=== PATIENT | female | born 1975 | race Caucasian/White ===

== ENCOUNTER 2016-09-01 07:04 | Emergency (ER) | payer BC ==
[~2016-09-01] VITALS: Ht 167.6 cm; Wt 70.3 kg
[2016-09-01 07:15] VITALS: BP 123/79
--- NOTE | 2016-09-01 15:54 | ED.ADGEN ---
Past History Past Medical History: Hypothyroid, Other Past Surgical History: Hysterectomy Alcohol Use: Occasionally Drug Use: None Adult General Chief Complaint Chief Complaint Gingival swelling and pain HPI HPI Patient is a 40-year-old female with dentures resents with gingival swelling and pain. Patient's continued were dentures. I contacted a dentist or perpetual inventory clerk. She states she missed work 4 days ago and pars work note. Review of Systems Review of Systems Review symptoms as per history of present illness. Allergies Allergies Allergies Coded Allergies Type Severity Reaction Last Updated Verified No Known Drug Allergies 09/01/16 No Physical Exam Physical Exam Constitutional: Well developed, well nourished, no acute distress, non-toxic appearance. HENT: Normocephalic,lower anterior gingival swelling and ulcer, right submandibular pain and swelling, no sublingual swelling, dysphonia, dysphagia, hoarseness or drooling. No trismus. Bilateral external ears normal, oropharynx moist, no oral exudates, nose normal. NECK: No cervical lymphadenopathy Current Patient Data Vital Signs Vital Signs Date Time Temp Pulse Resp B/P (MAP) Pulse Ox O2 Delivery O2 Flow Rate FiO2 09/01/16 07:15 97.7 90 16 98 Room Air EKG EKG [] Radiology/Procedures Radiology/Procedures [] Course & Med Decision Making Course & Med Decision Making Pertinent Labs and Imaging studies reviewed. (See chart for details) [Patient with gingival swelling anterior erosion. Patient recommended dental specialist. In the meantime, she is instructed to no wear her dentures and to use oral rinse and oral antibiotics.] Final Impression Final Impression [1. Periodontal disease] Problems: Dragon Disclaimer Dragon Disclaimer This electronic medical record was generated, in whole or in part, using a voice recognition dictation system. DEMARCO PERRY DO Sep 01, 2016 15:54
== END 2016-09-01 07:45 | disposition home or self-care (01) ==
LOC: ER 07:04
DX: K05.6 Periodontal disease, unspecified (principal); E03.9 Hypothyroidism, unspecified
CPT/HCPCS: 99283

== ENCOUNTER → 2016-11-13 | Outpatient (CLI) | payer BC ==
--- NOTE | 2016-11-13 16:16 | RAD ---
DATE: 11/13/2016 EXAM: MAMMO MARLINE MARY POWELLAT, BREAST RIGHT HISTORY: Right breast lump COMPARISON: None available The breast parenchyma is heterogeneously dense, which could reduce sensitivity of mammography. Breast parenchyma level C. FINDINGS: 2-D and 3-D tomosynthesis imaging was performed in CC and MLO projections. The fibroglandular tissues are heterogeneously dense and multinodular in character. There is a dominant 3 cm smooth nodule in the right breast at the 9:00 location. No irregular pulmonary mass is seen. There are scattered microcalcifications in both breasts. The distribution suggests a benign etiology such as sclerosing adenosis. No suspicious microcalcifications are delineated. Right breast ultrasound, 11/13/2016: A targeted ultrasound of the right breast was performed in the area of palpable concern at approximately 9:00. There is a smooth simple appearing cyst at this level measuring 2.6 cm in greatest diameter. It is centered approximately 2 cm from the nipple. No other abnormality is seen in this region. IMPRESSION: 1. The palpable mass in the lateral aspect of the right breast is a simple cyst. 2. Routine yearly mammographic surveillance is suggested. BI-RADS CATEGORY: 2 BENIGN FINDING(S) RECOMMENDED FOLLOW-UP: 12M 12 MONTH FOLLOW-UP PQRS compliance statement: Patient information was entered into a reminder system with a target due date for the next mammogram. Mammography is a sensitive method for finding small breast cancers, but it does not detect them all and is not a substitute for careful clinical examination. A negative mammogram does not negate a clinically suspicious finding and should not result in delay in biopsying a clinically suspicious abnormality. "Our facility is accredited by the [employer] Mammography Program."
== END | disposition home or self-care (01) ==
LOC: MAMMO 14:56
PROVIDERS: ATTEND Nurse Practitioner Family
DX: N60.01 Solitary cyst of right breast (principal)
CPT/HCPCS: 76641; G0204; G0279; 77062; 77066

== ENCOUNTER → 2016-12-24 | Outpatient (CLI) | payer BC ==
[~2016-12-24] MED LIST: IOHEXOL 240 MG/ML 50ML VIAL. ONE; IOHEXOL 300 MG/ML 75 ML VIAL. IV ONE; IOHEXOL 300 MG/ML 75 ML VIAL. ONE
--- NOTE | 2016-12-24 09:51 | RAD ---
CT of the abdomen and pelvis with contrast, 12/24/2016: History: Right upper quadrant abdominal pain Multidetector CT imaging was performed following oral and IV administration of contrast. There are multiple well-defined low density lesions in the liver. These tend to be well defined and demonstrate low internal densities compatible with simple cysts. The largest of these lies superiorly in the right lobe and measures 12 mm. No bile duct dilatation is seen. The gallbladder is unremarkable. No pancreatic abnormality is detected. The spleen is of normal size. No renal or adrenal abnormality is detected. Aortic calcific plaquing is present without evidence of aneurysm. No abdominal adenopathy is evident. The uterus is surgically absent. There appear to be 2 small collapsing cysts in the right ovary. There is a trace amount of free fluid in the pelvis on the right. Mild diffuse bladder wall thickening is probably due to its nondistended state. There is a moderate amount of stool in the right colon. No bowel distention is evident. A portion of the appendix is visualized and is unremarkable. No pericecal inflammatory process is evident. No free air is present in the abdomen. IMPRESSION: 1. Trace amount of free fluid in the pelvis. This amount of fluid can be on a physiologic basis. 2. Multiple hepatic cysts. 3. Mild diffuse bladder wall thickening probably due to its nondistended state. Cystitis cannot be excluded. Clinical correlation is suggested. 4. Increased stool in the right colon. PQRS Compliance Statement: One or more of the following individualized dose reduction techniques were utilized for this examination: 1. Automated exposure control 2. Adjustment of the mA and/or kV according to patient size 3. Use of iterative reconstruction technique
== END | disposition home or self-care (01) ==
LOC: CT 07:21
PROVIDERS: ATTEND Nurse Practitioner Family
DX: K76.89 Other specified diseases of liver (principal); I70.0 Atherosclerosis of aorta; F17.210 Nicotine dependence, cigarettes, uncomplicated; Z90.710 Acquired absence of both cervix and uterus
CPT/HCPCS: 74177; Q9966; Q9967

== ENCOUNTER → 2017-04-10 | Outpatient (CLI) | payer BC ==
--- NOTE | 2017-04-10 14:46 | RAD ---
3 views right RIBS 04/10/2017 2:00 AM Indication: RIB PAIN Comparison: Right rib pain Findings: No displaced rib fractures are identified. Visualized lungs are clear. No other fractures are seen. Widening of the clavicular joint is noted which may be postsurgical. Osteolysis could be considered in the absence of prior surgery. Impression: 1. No evidence of displaced rib fracture 2. Widening of the right acromioclavicular joint which could be postsurgical or represent osteophytosis
== END | disposition home or self-care (01) ==
LOC: PMG 12:51
PROVIDERS: ATTEND Nurse Practitioner Family
DX: R07.81 Pleurodynia (principal); E03.9 Hypothyroidism, unspecified; F17.210 Nicotine dependence, cigarettes, uncomplicated
CPT/HCPCS: 71100

== ENCOUNTER → 2020-08-01 | Outpatient (CLI) | payer OTHER ==
--- NOTE | 2020-08-01 12:39 | RAD ---
EXAM: Right knee, 3 views. HISTORY: Pain. COMPARISON: None. FINDINGS: 3 views of the right knee are obtained. There is no fracture, dislocation or subluxation. T here is a moderate to large joint effusion. There is enthesopathy along the superior patella. IMPRESSION: 1. Moderate to large knee effusion. 2. No acute osseous finding. Electronically signed by: Vinita Morelos MD (08/01/2020 12:37 PM) [id number]
== END ==
LOC: RAD 10:44
PROVIDERS: ATTEND Physician Assistant Medical
DX: M25.461 Effusion, right knee (principal)
CPT/HCPCS: 73562